=== PATIENT | male | born 1945 | race Caucasian/White ===

== ENCOUNTER → 2017-04-30 | Outpatient (CLI) | payer MEDICARE ==
[~2017-04-30] MED LIST: ASCO10004 PO; ASPI-515 PO; LEVO25TA4 PO; LORATADIN PO; MULT1TAB13 PO; OMEP-110 PO; TAMS-11 PO
== END | disposition home or self-care (01) ==
LOC: ROC 13:33
PROVIDERS: ATTEND Radiology Radiation Oncology
DX: C61 Malignant neoplasm of prostate (principal); Z92.21 Personal history of antineoplastic chemotherapy; Z85.810 Personal history of malignant neoplasm of tongue; Z88.0 Allergy status to penicillin; Z79.82 Long term (current) use of aspirin; Z95.0 Presence of cardiac pacemaker
CPT/HCPCS: 99214; G0463

== ENCOUNTER → 2017-06-16 | Outpatient (CLI) | payer MEDICARE, OTHER ==
[~2017-06-16] MED LIST changes: +FENTANYL PF 100 MCG/2ML IVPush ONE; +LIDOCAINE 1%, 20ML SQ ONE; +MIDAZOLAM 1 MG/ML, 5ML IVPush ONE
== END ==
LOC: ROC 07:23
PROVIDERS: ATTEND Radiology Radiation Oncology
DX: Z51.0 Encounter for antineoplastic radiation therapy (principal); C61 Malignant neoplasm of prostate; Z85.810 Personal history of malignant neoplasm of tongue
CPT/HCPCS: 55876; 76942; 77332; 99156; A4648; J2250; J3010; J3490

== ENCOUNTER → 2017-09-24 | Outpatient (CLI) | payer MEDICARE ==
[~2017-09-24] MED LIST changes: -FENTANYL PF 100 MCG/2ML IVPush ONE; -LIDOCAINE 1%, 20ML SQ ONE; -MIDAZOLAM 1 MG/ML, 5ML IVPush ONE
== END | disposition home or self-care (01) ==
LOC: ROC 09:20
PROVIDERS: ATTEND Radiology Radiation Oncology
DX: C61 Malignant neoplasm of prostate (principal); Z85.810 Personal history of malignant neoplasm of tongue
CPT/HCPCS: G0463

== ENCOUNTER → 2018-03-31 | Outpatient (CLI) | payer MEDICARE | END | disposition home or self-care (01) | LOC: ROC 07:13 | PROVIDERS: ATTEND Radiology Radiation Oncology | DX: Z08 Encounter for follow-up examination after completed treatment for malignant neoplasm (principal); C61 Malignant neoplasm of prostate | CPT/HCPCS: G0463 ==

== ENCOUNTER 2018-06-17 07:00 | Observation (INO) | payer MEDICARE ==
[~2018-06-17] VITALS: Ht 182.9 cm; Wt 95.6 kg
[2018-06-17] MEDS ORDERED: SODIUM CHLORIDE FLUSH 10ML SYR IVF ONE (07:30)
[2018-06-17] MEDS ORDERED: NITROGLYCERIN SINGLE TAB 0.4 MG SL PRN (07:30)
[2018-06-17] MEDS ORDERED: ONDANSETRON 2MG/ML, 2ML IVPush ONE (07:30)
[2018-06-17] MEDS ORDERED: ASPIRIN 81 MG TABLET CHEW PO ONE (07:30)
[2018-06-17] MEDS ORDERED: ONDANSETRON 2MG/ML, 2ML ONE (07:42)
[2018-06-17] MEDS ORDERED: NITROGLYCERIN SINGLE TAB 0.4 MG SL ONE (07:43)
[2018-06-17] MEDS ORDERED: ASPIRIN 81 MG TABLET CHEW ONE (07:43)
--- NOTE | 2018-06-17 07:50 | NUR ---
ERP WAS IN TO SEE PT. IV STARTED, PT MEDICATED PER ORDERS. RV'WD POC WITH PT AND .
[2018-06-17 07:56] LABS: BASOPHILS # (AUTO) 0.01 x10^3/uL (0-0.1); BASOPHILS % (AUTO) 0 % (0-1); EOSINOPHILS # (AUTO) 0.06 x10^3/uL (0-0.4); EOSINOPHILS % (AUTO) 1 % (1-7); LYMPHOCYTES # (AUTO) 0.66 x10^3/uL (1-3.4); LYMPHOCYTES % (AUTO) 14 % (22-44); MD NO; MEAN CORPUSCULAR HGB CONC 33.6 g/dL (33.2-36.2); MEAN CORPUSCULAR VOLUME 95.1 fL (81-97); MEAN PLATELET VOLUME 7.7 fL (7.4-10.4); MONOCYTES % (AUTO) 6 % (2-9); NEUTROPHILS # (AUTO) 3.67 x10^3/uL (1.8-6.8); NEUTROPHILS % (AUTO) 78 % (42-75); PLATELET COUNT 169 x10^3/uL (130-400); RED BLOOD COUNT 4.74 x10^6/uL (4.38-5.82); RED CELL DISTRIBUTION WIDTH 13.9 % (9.4-14.8)
[2018-06-17 07:57] LABS: ALANINE AMINOTRANSFERASE 43 U/L (12-78); ALBUMIN 3.7 g/dL (3.4-5.0); ANION GAP 3 mmol/L (5-15); CALCIUM 8.6 mg/dL (8.5-10.1); CHLORIDE 112 mmol/L (98-107)
[2018-06-17 08:00] LABS: ALKALINE PHOSPHATASE 77 U/L (45-117); BILIRUBIN,TOTAL 0.6 mg/dL (0.2-1.0); CREATININE 0.98 mg/dL (0.7-1.3); T4 (THYROXINE) 11.1 mcg/dL (4.5-12.1); TOTAL PROTEIN 6.9 g/dL (6.4-8.2); TROPONIN I 0.023 ng/mL (0.000-0.045)
--- NOTE | 2018-06-17 08:09 | NUR ---
PT AMBULATED TO BR WITHOUT DIFFICULTY. INSTRUCTED ON CLEAN CATCH URINE SAMPLE. REMAINS AT BS.
--- NOTE | 2018-06-17 08:12 | NUR ---
INFORMED BY MACHINIST OUTSIDE THAT PT'S SPO2 WAS 89% ON RA. PLACED ON 1.5L O2 NC; SPO2 INCREASED TO 98%.
--- NOTE | 2018-06-17 08:14 | NUR ---
REPEAT EKG DONE BY HEATING AND AIR CONDITIONING MECHANIC.
[2018-06-17 08:50] LABS: MICROSCOPIC NOT IND
[2018-06-17 08:52] LABS: CULTURE INDICATED? NO
[2018-06-17] MEDS ORDERED: SODIUM CHLORIDE FLUSH 10ML SYR IVF PRN (09:30)
--- NOTE | 2018-06-17 09:56 | NUR ---
HOSPITALIST AT BS.
[2018-06-17] MEDS ORDERED: OMEP-110 PO (10:19)
[2018-06-17] MEDS ORDERED: DIGO250T PO (10:19)
[2018-06-17] MEDS ORDERED: CETI10CA PO (10:19)
[2018-06-17] MEDS ORDERED: morphine SULFATE 10 MG/ML, 1ML IVPush PRN (11:00)
[2018-06-17] MEDS ORDERED: BISACODYL 10 MG SUPP PR PRN (11:00)
[2018-06-17] MEDS ORDERED: LABETALOL 5MG/ML, 20ML IVPush PRN (11:00)
[2018-06-17] MEDS ORDERED: POLYETHYLENE GLYCOL 17 GM PACKET PO PRN (11:00)
[2018-06-17] MEDS ORDERED: ONDANSETRON ODT 4 MG PO PRN (11:00)
[2018-06-17] MEDS ORDERED: DOCUSATE 100 MG CAPSULE PO PRN (11:00)
[2018-06-17] MEDS ORDERED: ACETAMINOPHEN 325 MG TABLET PO PRN (11:00)
[2018-06-17] MEDS ORDERED: hydrALAzine 20 MG/ML, 1ML IVPush PRN (11:00)
[2018-06-17 11:02] VITALS: BP 122/82
[2018-06-17 11:46] LABS: INTERNATIONAL NORMALIZED RATIO 1.04 (0.93-1.1); PROTHROMBIN TIME 10.9 Seconds (9.6-11.5)
[2018-06-17] MEDS: SODIUM CHLORIDE 0.9% 1,000 ML IV SCH ×8 (11:49→13:40)
[2018-06-17 11:51] LABS: FREE T4 (FREE THYROXINE) 1.18 ng/dL (0.76-1.46); TROPONIN I 0.024 ng/mL (0.000-0.045)
[2018-06-17 12:08] VITALS: BP 136/84
[2018-06-17 14:00] VITALS: BP 121/75
[2018-06-17 16:33] LABS: TROPONIN I < 0.015 ng/mL (0.000-0.045)
[2018-06-17 20:03] VITALS: BP 127/69
[2018-06-18 01:42] VITALS: BP 138/74
[2018-06-18 05:05] LABS: BASOPHILS # (AUTO) 0.02 x10^3/uL (0-0.1); BASOPHILS % (AUTO) 1 % (0-1); EOSINOPHILS # (AUTO) 0.08 x10^3/uL (0-0.4); EOSINOPHILS % (AUTO) 2 % (1-7); LYMPHOCYTES # (AUTO) 0.91 x10^3/uL (1-3.4); LYMPHOCYTES % (AUTO) 23 % (22-44); MD NO; MEAN CORPUSCULAR HEMOGLOBIN 31.9 pg (27.5-34.5); MEAN CORPUSCULAR HGB CONC 33.5 g/dL (33.2-36.2); MEAN CORPUSCULAR VOLUME 95.1 fL (81-97); MEAN PLATELET VOLUME 7.7 fL (7.4-10.4); MONOCYTES # (AUTO) 0.34 x10^3/uL (0.2-0.8); MONOCYTES % (AUTO) 8 % (2-9); NEUTROPHILS # (AUTO) 2.66 x10^3/uL (1.8-6.8); NEUTROPHILS % (AUTO) 66 % (42-75); PLATELET COUNT 155 x10^3/uL (130-400); RED CELL DISTRIBUTION WIDTH 13.9 % (9.4-14.8)
[2018-06-18 05:18] LABS: ALBUMIN 3.5 g/dL (3.4-5.0); ANION GAP 4 mmol/L (5-15); CHLORIDE 112 mmol/L (98-107)
[2018-06-18 05:25] LABS: ALANINE AMINOTRANSFERASE 33 U/L (12-78); ALKALINE PHOSPHATASE 66 U/L (45-117); BILIRUBIN,TOTAL 0.7 mg/dL (0.2-1.0); CALCIUM 9.2 mg/dL (8.5-10.1); CHOL/HDL RATIO 3.8; CHOLESTEROL, TOTAL 184 mg/dL (140-239); CREATININE 0.93 mg/dL (0.7-1.3); HDL CHOL % 27 % (26-37); HDL CHOLESTEROL (DIRECT) 49 mg/dL (40-60); LDL CHOLESTEROL,CALCULATED 111 mg/dL (54-169); LDL/HDL RATIO 2.3 (0.5-3.0); TOTAL PROTEIN 6.3 g/dL (6.4-8.2); TRIGLYCERIDES 118 mg/dL (50-200); VLDL CHOLESTEROL 24 mg/dL (0-25)
[2018-06-18] MEDS ORDERED: LEVOTHYROXINE 75 MCG TABLET PO SCH (06:00)
[2018-06-18 07:46] VITALS: BP 136/74
[2018-06-18] MEDS ORDERED: ASPIRIN 81 MG TABLET EC PO SCH (09:00)
[2018-06-18] MEDS ORDERED: OMEPRAZOLE 20 MG CAPSULE.DR PO SCH (09:00)
[2018-06-18] MEDS ORDERED: TAMSULOSIN 0.4 MG CAP.ER.24H PO SCH (09:00)
[2018-06-18] MEDS ORDERED: DIGOXIN 0.25 MG TABLET PO SCH (09:00)
[2018-06-18] MEDS ORDERED: SINCALIDE (KINEVAC) 5 MCG ONE (11:37)
[2018-06-18 12:37] VITALS: BP 145/89
== END 2018-06-18 16:15 | disposition home or self-care (01) ==
LOC: ED 08:41 → INTOOBSV 09:14 → EDIP 09:14 → OBSVTOIN 09:14 → 5SO 10:57 → DCLOUNGE 06-18 15:59
PROVIDERS: ADMIT Emergency Medicine; ATTEND Emergency Medicine
DX: R07.89 Other chest pain (principal); E03.9 Hypothyroidism, unspecified; K21.9 Gastro-esophageal reflux disease without esophagitis; G43.909 Migraine, unspecified, not intractable, without status migrainosus; G47.33 Obstructive sleep apnea (adult) (pediatric); R10.9 Unspecified abdominal pain; E78.5 Hyperlipidemia, unspecified; I16.0 Hypertensive urgency; I49.9 Cardiac arrhythmia, unspecified; M47.9 Spondylosis, unspecified; N20.9 Urinary calculus, unspecified; N28.1 Cyst of kidney, acquired; N40.0 Benign prostatic hyperplasia without lower urinary tract symptoms; Z82.49 Family history of ischemic heart disease and other diseases of the circulatory system; Z85.46 Personal history of malignant neoplasm of prostate; Z87.891 Personal history of nicotine dependence; Z92.21 Personal history of antineoplastic chemotherapy; Z92.3 Personal history of irradiation; Z95.0 Presence of cardiac pacemaker
CPT/HCPCS: 36415; 71045; 74177; 78227; 80053; 80061; 80162; 81003; 83605; 83690; 83735; 84436; 84439; 84443; 84484; 85025; 85379; 85610; 93005; 93306; 96374; 99284; A9537; C9898; G0378; J2405; J2805; J7030

== ENCOUNTER → 2018-07-21 | Outpatient (CLI) | payer MEDICARE ==
[~2018-07-21] MED LIST changes: +CETI10CA PO; +DIGO250T PO; +REGADENOSON 0.4 MG/5 ML SYRINGE ONE
== END | disposition home or self-care (01) ==
LOC: CFH 12:36
PROVIDERS: ATTEND Internal Medicine Cardiovascular Disease
DX: Z01.810 Encounter for preprocedural cardiovascular examination (principal); I25.89 Other forms of chronic ischemic heart disease; I48.0 Paroxysmal atrial fibrillation
CPT/HCPCS: 78452; 93017; A9502; J2785

== ENCOUNTER 2019-01-24 08:02 | Outpatient (CLI) | payer MEDICARE ==
[~2019-01-24 08:02] MED LIST changes: -REGADENOSON 0.4 MG/5 ML SYRINGE ONE
== END 2019-01-24 23:59 | disposition home or self-care (01) ==
LOC: ROC 08:02
PROVIDERS: ATTEND Radiology Radiation Oncology
DX: C61 Malignant neoplasm of prostate (principal)
CPT/HCPCS: G0463

== ENCOUNTER → 2019-05-30 | Outpatient (CLI) | payer MEDICARE ==
[~2019-05-30] MED LIST changes: -DIGO250T PO; +DIGO250T3 PO
== END | disposition home or self-care (01) ==
LOC: ROC 07:28
PROVIDERS: ATTEND Radiology Radiation Oncology
DX: C61 Malignant neoplasm of prostate (principal); C01 Malignant neoplasm of base of tongue
CPT/HCPCS: 99213; G0463

== ENCOUNTER → 2020-04-18 | Outpatient (CLI) | payer MEDICARE ==
[~2020-04-18] MED LIST changes: +ASCO100018 PO; -ASCO10004 PO; -ASPI-515 PO; +ASPI-963 PO
== END | disposition home or self-care (01) ==
LOC: ROC 07:29
PROVIDERS: ATTEND Radiology Radiation Oncology
DX: Z08 Encounter for follow-up examination after completed treatment for malignant neoplasm (principal); Z85.46 Personal history of malignant neoplasm of prostate; I10 Essential (primary) hypertension; E03.9 Hypothyroidism, unspecified; E78.2 Mixed hyperlipidemia; E11.9 Type 2 diabetes mellitus without complications
CPT/HCPCS: G0463

== ENCOUNTER → 2020-10-02 | Outpatient (CLI) | payer MEDICARE ==
[2020-10-02 15:40] LABS: FREE T4 (FREE THYROXINE) 1.32 ng/dL (0.76-1.46)
== END | disposition home or self-care (01) ==
LOC: LAB 15:07
PROVIDERS: ATTEND Internal Medicine
DX: E03.9 Hypothyroidism, unspecified (principal)
CPT/HCPCS: 36415; 84439; 84443; 84481

== ENCOUNTER → 2020-10-05 | Outpatient (CLI) | payer MEDICARE ==
[2020-10-05 07:43] LABS: BASOPHILS % (AUTO) 1 % (0-1); EOSINOPHILS % (AUTO) 2 % (1-7); LYMPHOCYTES % (AUTO) 17 % (22-44); MEAN CORPUSCULAR HEMOGLOBIN 32.6 pg (27.5-34.5); MEAN CORPUSCULAR HGB CONC 34.2 g/dL (33.2-36.2); MEAN PLATELET VOLUME 7.4 fL (7.4-10.4); MONOCYTES % (AUTO) 6 % (2-9); NEUTROPHILS % (AUTO) 75 % (42-75); PLATELET COUNT 164 x10^3/uL (130-400); RED BLOOD COUNT 4.39 x10^6/uL (4.38-5.82); RED CELL DISTRIBUTION WIDTH 14.1 % (9.4-14.8)
[2020-10-05 08:25] LABS: FOLATE LEVEL > 20.0 ng/mL (3.1-17.5)
== END | disposition home or self-care (01) ==
LOC: LAB 07:18
PROVIDERS: ATTEND Internal Medicine
DX: I10 Essential (primary) hypertension (principal); E55.9 Vitamin D deficiency, unspecified; R73.03 Prediabetes; K21.9 Gastro-esophageal reflux disease without esophagitis; R53.83 Other fatigue
CPT/HCPCS: 36415; 82306; 82607; 82728; 82746; 83036; 85025